=== PATIENT | male | born 1960 | race Caucasian/White ===

== ENCOUNTER 2022-07-19 06:35 | Day surgery (SDC) | payer BC ==
[2022-07-19] VITALS (8 sets, daily range): BP systolic 72–137; BP diastolic 46–69
[~2022-07-19] VITALS: Ht 175.3 cm; Wt 95.7 kg
[~2022-07-19 06:35] MED LIST: ALLEGRA ALLERGY60 MG PO; Flonase 0.05% N16 GM; METO25ER PO; SILODOSIN8 MG PO
--- NOTE | 2022-07-19 07:37 | NUR ---
PT'S IN ROOM. DR VILLALTA IN ROOM.
--- NOTE | 2022-07-19 09:04 | NUR ---
PT BACK TO RECOVERY ROOM POST PROCEDURE VIA RECLINER. AWAKE AND ALERT, DENIES ANY PAIN OR DISCOMFORT. VSS. RIGHT RADIAL SITE WITH TR BAND AND SPLINT IN PLACE, NO BLEEDING OR SWELLING NOTED AT SITE.
--- NOTE | 2022-07-19 09:30 | NUR ---
PT REPORTING SOME DIZZINESS AND NAUSEA. HR BECOMING MORE BRADYCARDIC, BP DECREASED TO 72/49. FLUID BOLUS INFUSING. PT CHECKED BLOOD SUGAR WITH HOME MONITOR, RESULT OF 110. LEGS ELEVATED, PT ASSISTED TO RECLINE BACK. DR LEAL NOTIFIED.
--- NOTE | 2022-07-19 09:35 | NUR ---
BP UP TO 117/46, PT NO LONGER REPORTING DIZZINESS OR NAUSEA. DR LEAL AT BEDSIDE SPEAKING WITH PT AND SPOUSE ABOUT POSSIBLE VAGAL REACTION. PT ALERT AND ORIENTED, DOES NOT APPEAR PALE OR DIAPHORETIC.
--- NOTE | 2022-07-19 10:07 | NUR ---
RIGHT RADIAL TR BAND HAS BEEN FULLY DEFLATED. NO BLEEDING OR SWELLING NOTED AT SITE. VSS, CALL LIGHT IN REACH. PT AND SPOUSE HAVE BEEN GIVEN DC INSTRUCTIONS, VERBALIZED UNDERSTANDING.
--- NOTE | 2022-07-19 10:45 | NUR ---
IV DC'D, CATH INTACT. RIGHT RADIAL TR BAND REMOVED AND CLOTH DOT AND SPLINT PLACED OVER SITE PRIOR TO DC. PT ABLE TO AMBULATE TO THE BATHROOM WITHOUT DIFFICULTY PRIOR TO DISCHARGE. PT OUT TO CAR VIA WHEELCHAIR, SPOUSE DRIVING PT HOME.
== END 2022-07-19 11:45 | disposition home or self-care (01) ==
LOC: MHTC 06:35
DX: I77.810 Thoracic aortic ectasia (principal); E78.5 Hyperlipidemia, unspecified; I10 Essential (primary) hypertension; E11.9 Type 2 diabetes mellitus without complications; I35.0 Nonrheumatic aortic (valve) stenosis
CPT/HCPCS: 76937; 93458; 99152; 99153; C1769; C1887; C1894; J1644; J2250; J3010; J7030; J7050; Q9967

== ENCOUNTER 2023-03-22 05:54 | Day surgery (SDC) | payer BC ==
[2023-03-22] VITALS (10 sets, daily range): BP systolic 131–167; BP diastolic 71–84
[~2023-03-22] VITALS: Ht 175.3 cm; Wt 92.6 kg
[~2023-03-22 05:54] MED LIST changes: +ASPI81CH PO; +FISH OIL PO; +MULVITA PO
--- NOTE | 2023-03-22 07:15 | NUR ---
History, Chart, Medications and Allergies reviewed before start of procedure. Lungs clear T/O to Auscultation. Patient confirms NPO status and agrees with scheduled surgery. Pre-Op teaching done. Pt verbalizes understanding. Patient reports completing Chlorhexadine shower X2 prior to admission to hospital.
[2023-03-22 07:26] LABS: Bun/Creatinine Ratio 22.2 (12.0-20.0); Calcium, Blood 8.6 mg/dL (8.5-10.1); Creatinine, Blood 0.77 mg/dL (0.60-1.20)
--- NOTE | 2023-03-22 11:00 | NUR ---
Discharge instructions reviewed with patient. Patient verbalizes understanding. Copy given to patient to take home. Patient States Post-Procedure ride home has been arranged. Discharged via wheelchair to private car for ride home.
== END 2023-03-22 11:05 | disposition home or self-care (01) ==
LOC: ORSCMMR 05:54 → ORD 07:30 → ORSCMMR 11:05 → ORD 14:15
PROVIDERS: Surgery
PROC: 8E0W4CZ Robotic Assisted Procedure of Trunk Region, Percutaneous Endoscopic Approach (ICD-10-PCS; principal; 2023-03-22 07:30)
PROC: 0YU54JZ Supplement Right Inguinal Region with Synthetic Substitute, Percutaneous Endoscopic Approach (ICD-10-PCS; principal; 2023-03-22 07:30)
DX: K40.90 Unilateral inguinal hernia, without obstruction or gangrene, not specified as recurrent (principal); I10 Essential (primary) hypertension; G47.33 Obstructive sleep apnea (adult) (pediatric); E11.9 Type 2 diabetes mellitus without complications; Z79.82 Long term (current) use of aspirin
CPT/HCPCS: 80048; 82947; A9270; C1781; J0690; J1100; J1885; J2250; J2405; J2704; J3010; J7120